=== PATIENT | female | born 1975 | race American Indian/Alaskan Native ===

== ENCOUNTER 2020-04-29 09:27 | Outpatient (CLI) | payer OTHER | END 2020-04-29 09:28 | disposition home or self-care (01) | LOC: MAMMO 09:27 | PROVIDERS: ATTEND Family Medicine | DX: Z12.31 Encounter for screening mammogram for malignant neoplasm of breast (principal) | CPT/HCPCS: 77067 ==

== ENCOUNTER 2021-01-18 12:59 | Outpatient (CLI) | payer OTHER ==
--- NOTE | 2021-01-18 15:22 | Ultrasound Report ---
LEFT DIGITAL DIAGNOSTIC MAMMOGRAM WITH CAD , 01/18/2021 LEFT LIMITED BREAST ULTRASOUND CLINICAL INFORMATION / INDICATION: Abnormal screening mammogram. Screening recall of the left breast. TECHNIQUE: Digital left mammographic imaging was performed. Spot compression views were obtained. [place] it ultrasound was performed. This examination was interpreted with the benefit of Computer-Aided De tection (CAD) analysis. COMPARISON: Screening mammogram, 04/29/2020. FINDINGS: Breast Density: The breasts are heterogeneously dense, which may obscure small masses. MAMMOGRAPHIC FINDINGS: Spot compression views of the upper outer left breast confirm a 2 cm nodular d ensity at the 2:00 position posterior depth. ULTRASOUND FINDINGS: Targeted ultrasound evaluation was performed of the area of interest. Sonograp hic evaluation of the upper outer left breast demonstrates a poorly defined hypoechoic mass at the 2: 00 position 3 cm from the nipple measuring 1.9 x 0.9 cm. This appears to correspond to the mammograph ic findings. There is some posterior acoustic shadowing. No vascularity is demonstrated. IMPRESSION: 1. Left breast mass at the 2:00 position as described which is suspicious for malignancy. Surgical co nsultation and ultrasound-guided biopsy are recommended. A postbiopsy mammogram is also suggested to document mammographic correlation after biopsy marker placement. Follow up recommendation: Biopsy BI-RADS Category 4: Suspicious for Malignancy. A "normal" or negative report should not discourage follow up or biopsy of a clinically significant f inding. A written summary of these findings will be mailed to the patient. The patient will be entered into a mammography reporting system which will generate a reminder letter for the patient's next appointmen t at the appropriate interval. According to the [employer], yearly mammograms are recommended starting at age 40 and continuing as long as a woman is in good health. Breast MRI is recommended for women with an yasmeen roximately 20-25% or greater lifetime risk of breast cancer, including women with a strong family his tory of breast or ovarian cancer and women who have been treated for Hodgkin's disease. Signer Name: Deanna Last MD Signed: 01/18/2021 3:17 PM Workstation Name: [id number]
== END 2021-01-18 13:00 | disposition home or self-care (01) ==
LOC: MAMMO 12:59
PROVIDERS: ATTEND Family Medicine
DX: N63.21 Unspecified lump in the left breast, upper outer quadrant (principal)

== ENCOUNTER 2021-03-08 09:59 | Outpatient (CLI) | payer OTHER ==
--- NOTE | 2021-03-08 11:51 | Mammography Report ---
LEFT DIGITAL DIAGNOSTIC MAMMOGRAM 03/08/2021 LEFT LIMITED BREAST ULTRASOUND INDICATION: Suspicious left breast mass. TECHNIQUE: Digital left mammographic imaging was performed. Spot compression views were obtained. Li mited ultrasound was performed. This examination was interpreted with the benefit of Computer-Aided D etection (CAD) analysis. COMPARISON: 01/18/2021, 04/29/2020, 06/27/2017 FINDINGS: Breast Density: The breast is heterogeneously dense, which may obscure small masses. MAMMOGRAPHIC FINDINGS: The originally described 1 cm asymmetric density seen superiorly along the lef t breast on the MLO view only is not clearly seen on this exam. A 2 cm nodular density seen on the No vember 2020 mammogram and located posteriorly along the upper left breast on the MLO view only persis ts. No other significant abnormality is identified. ULTRASOUND FINDINGS: Targeted ultrasound evaluation was performed of the area of interest. The prev iously described 2:00 left breast mass is not identified. I personally performed ultrasound imaging i n addition to the images acquired by the technologist and did not visualize the previously described mass or other significant abnormalities. Ultrasound-guided biopsy could not be performed at this time . IMPRESSION: Interval resolution of the previously described left breast mass seen previously by ultrasound with a persistent nodular density in the upper left breast posteriorly. MRI of the left breast may be helpf ul for further evaluation. Alternatively, reevaluation with a diagnostic left mammogram in 6 months m ay be performed to ensure stability. Follow up recommendation: Breast MRI BI-RADS Category 0: INCOMPLETE. Needs additional imaging evaluation and/or prior mammograms for nunu rison. A "normal" or negative report should not discourage follow up or biopsy of a clinically significant f inding. A written summary of these findings will be mailed to the patient. The patient will be entered into a mammography reporting system which will generate a reminder letter for the patient's next appointmen t at the appropriate interval. According to the [employer], yearly mammograms are recommended starting at age 40 and continuing as long as a woman is in good health. Breast MRI is recommended for women with an yasmeen roximately 20-25% or greater lifetime risk of breast cancer, including women with a strong family his tory of breast or ovarian cancer and women who have been treated for Hodgkin's disease. Signer Name: Saleem Woody MD Signed: 03/08/2021 11:46 AM Workstation Name: [id number]
== END 2021-03-08 10:00 | disposition home or self-care (01) ==
LOC: SPVWC 09:59
PROVIDERS: ATTEND Family Medicine
DX: N63.21 Unspecified lump in the left breast, upper outer quadrant (principal); R92.8 Other abnormal and inconclusive findings on diagnostic imaging of breast